=== PATIENT | male | born 1945 | race Caucasian/White ===

== ENCOUNTER 2017-05-26 05:40 | Inpatient (IN) | payer OTHER, MEDICARE ==
[2017-05-26] VITALS (13 sets, daily range): BP systolic 115–138; BP diastolic 58–73; PULSE 62–90; RESP 16–18; TEMP 97.8–99.1; O2SAT 93–95
[~2017-05-26] VITALS: Ht 180.3 cm; Wt 92.0 kg
[~2017-05-26 05:40] MED LIST: AZIT250T3 PO; CARV3.12 PO; ECASA81 PO; FURO1TAB62 PO; GUAISYP4 PO; LOSA50TA PO; SPIR25 PO
[2017-05-26] MEDS ORDERED: POVIDONE IODINE 5% (ANTISEPSIS KIT) 4 APPLICATIONS EACH NARE PRN (06:15)
[2017-05-26] MEDS ORDERED: CHLORHEXIDINE GLUCONATE 2 % 1 PACK (2 CLOTHS) TOPICAL PRN (06:15)
[2017-05-26] MEDS ORDERED: METOPROLOL TARTRATE 25 MG TAB PO PRN (06:15)
[2017-05-26] MEDS ORDERED: LACTATED RINGER'S 1000 ML IV PRN (06:15)
[2017-05-26] MEDS ORDERED: SODIUM CHLORID 0.9% 500 ML IV PRN (06:15)
[2017-05-26] MEDS ORDERED: HEPARIN SODIUM - IV 10,000 UNITS/10 ML VIAL ONE (06:26)
[2017-05-26] MEDS ORDERED: PROTAMINE SULFATE 50 MG/5 ML VIAL ONE ×2 (06:26→08:13)
[2017-05-26] MEDS ORDERED: VANCOMYCIN HCL 1000 MG VIAL ONE (06:27)
[2017-05-26] MEDS ORDERED: BUPIVACAINE HCL PF 0.5% 30 ML VIAL ONE (06:27)
[2017-05-26] MEDS ORDERED: HEPARIN-NS/PF INJ 500 ML ONE ×2 (06:27→09:27)
--- NOTE | 2017-05-26 06:52 | PD.VS.PN ---
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 No F/C. Nonproductive cough. Labs: Hct 41 plt 178 INR 0.9 cr 1.4 Blood: T&S EKG: no ST changes Imaging: CT reviewed; likely type 2 endoleak but poor overall fixation of distal limbs Orders: NPO VANC 1g IV OCTOR Post-operative destination: PACU Operative site marked: No (bilateral (aortic) surgery) Consent: Informed consent has been obtained from Nevaeh Hubbard. I have explained the procedure in detail and discussed the risks, benefits, and potential complications. All questions have been answered. Patient contact information: [phone] Howard Verma MD May 26, 2017 06:52
[2017-05-26] MEDS ORDERED: FAMOTIDINE 20 MG/2 ML VIAL ONE (07:40)
[2017-05-26] MEDS ORDERED: ACETAMINOPHEN 1000 MG/100 ML 100 ML IV ONE (07:40)
[2017-05-26] MEDS ORDERED: MIDAZOLAM HCL 2 MG/2 ML VIAL ONE (07:40)
[2017-05-26] MEDS ORDERED: SODIUM CHLOR 0.9% 250 ML INJ 250 ML ONE (08:13)
[2017-05-26] MEDS ORDERED: IOHEXOL IV ONE (08:34)
--- NOTE | 2017-05-26 10:03 | HHI.PR ---
Immediate Post Op Note Procedure Date: May 26, 2017 Pre Op Diagnosis: endoleak after EVAR, failing endograft Post Op Diagnosis: endoleak after EVAR, failing endograft Surgeon: Howard Verma Disk Sander(s): none Procedure: 1. EVAR revision (B iliac limb extensions) 2. IVUS of aorta, R JORGE LUIS, L JORGE LUIS 3. IVCavagram 4. Transcaval embolization of AAA sac 5. 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 Type II endoleak 2. Successful extension of B iliac limbs with preservation of hypogastric perfusion 3. successful access to AAA sac and coil embolization 4. + Doppler signals B LE Complications: none Specimen(s) removed: none Estimated blood loss: 50mL Anesthesia: General Drains: None Fluids: 1400mL IVF Urinary Output (mLs): 800 Patient to: PACU Patient Condition: Good Implant/Devices: SEE IMPLANT LOG (if applicable) Date/Time of Procedure: SEE SURGICAL CARE RECORD Howard Vemra MD May 26, 2017 10:03
[2017-05-26] MEDS ORDERED: DO NOT ADM ANY ANTICOAGULANT DRUGS PRN (10:12)
[2017-05-26] MEDS ORDERED: HYDROmorphone HCL 2 MG TAB PO PRN (10:15)
[2017-05-26] MEDS ORDERED: BISACODYL 10 MG SUPP RECTAL PRN (10:15)
[2017-05-26] MEDS ORDERED: MAGNESIUM HYDROXIDE SUSP 30 ML CUP PO PRN (10:15)
[2017-05-26] MEDS ORDERED: SENNOSIDES 8.6 MG TAB PO PRN (10:15)
[2017-05-26] MEDS ORDERED: LACTULOSE SYRUP 20 GM/30 ML CUP PO PRN (10:15)
[2017-05-26] MEDS ORDERED: *morphine SULFATE 8 MG/ML PERIprocedure ONLY ONE (10:29)
--- NOTE | 2017-05-26 13:21 | MP ---
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 PROCEDURE 1. Bilateral iliac limb extensions with 14 x 90 EVAR limbs. 2. Intravascular ultrasound of the aorta, right common iliac artery, left common iliac artery. 3. Inferior vena cava gram. 4. Transcaval embolization of aortic sac. 5. Bilateral common femoral artery Perclose. ATTENDING SURGEON Giovanni Verma MD ANESTHESIA General. INDICATIONS Mr. Hubbard is a 71-year-old gentleman who has a history of aneurysm repaired elsewhere. He has an enlarging aneurysm sac and suggestion of a type 2 endoleak and certainly very poor fixation and seal of his distal limbs. He is taken to the operating room for angiographic interrogation, endovascular remediation and transcaval embolization. DESCRIPTION OF PROCEDURE Informed consent was obtained from the patient. He was taken to the operating room and placed supine on the operating table. An appropriate time-out was taken to ensure the patient's identity, operative site and planned procedure. The administration of a gram of vancomycin was initiated prior to skin incision and will be discontinued after single preoperative dose. Vancomycin was chosen because of the patient's PENICILLIN ALLERGY. Everyone in the room agreed with time-out and we proceeded. He was prepped from his nipples to his knees. A 21 gauge micropuncture needle was used to access both common femoral arteries, this was exchanged using Seldinger technique through micropuncture sheath through which a 0.035 Storq wire was introduced. The micropuncture sheaths were changed for a 5-Gabonese sheath. This was used to dilate the skin, subcutaneous tract and arteriotomy. Two Perclose ProGlide sutures were inserted into both groins and tagged. These were not tied down but will be used later. The 8-Gabonese sheath were introduced into both groins. A 21 gauge micropuncture sheath was used to access the right common femoral vein and this was exchanged using Seldinger technique through micropuncture sheath through which a 0.035 Storq wire was introduced. Micropuncture sheath was exchanged for a 5-Gabonese sheath. The wire was removed and the sheath was flushed. The patient was then systemically heparinized and throughout the remainder of the case ACT was kept greater than 250. Over the right-hand common femoral artery access a Storq wire was placed and the marker flush straight catheter was then introduced and over the left-hand side a Storq wire was advanced to the proximal descending aorta and exchanged using catheter for a Lunderquist wire. The IVUS catheter was then introduced. Images of the proximal aorta showed reasonable apposition of the graft to the aortic wall below the renal arteries and images of the left common iliac artery showed the diameter to be approximately 14 mm immediately proximal to the hypogastric artery takeoff. The IVUS catheter was removed and aortogram was obtained. This confirmed that there was poor apposition distally with good apposition proximally. Additionally, it confirmed there was a type 2 endoleak. The 8-Gabonese sheath on the left was removed over the Lunderquist wire and Rodri dilators were used to dilate the skin, subcutaneous tract and arteriotomy and a 14-mm Medtronic limb was then introduced and deployed with sufficient overlap to the distal aspect of fabric was immediately proximal to the hypogastric artery takeoff. The delivery system was removed and a 12-Gabonese sheath was introduced and the junctions in the entire stent were ballooned with a Reliant balloon. The Reliant balloon was removed and a vertebral catheter was placed over the Lunderquist wire and the Lunderquist wire was removed. A Storq wire was advanced up the right-hand side and the marker catheter was removed and using a vertebral catheter the Storq was exchanged for a Lunderquist wire. The vertebral catheter was removed and the IVUS catheter was placed up the right-hand side and images of the right common iliac artery were obtained. This showed the diameter was 14 mm and based on this a 16 mm limb was chosen. The IVUS catheter was removed. The 8-Gabonese sheath was removed. Rodri dilators were used to dilate the skin, subcutaneous tracts and arteriotomy and the 16 mm limb was introduced and deployed without difficulty so the distal aspect of the limb was immediately proximal to the hypogastric takeoff. The delivery system was removed and a 12-Gabonese sheath was introduced and the limb was balloon dilated with a Reliant balloon. The completion angiogram showed excellent result on both sides without any endoleak and preservation of both hypogastric arteries. On the right-hand side the wire, catheter and sheath were removed and Perclose were tied down. Hemostasis was achieved in the groin and there were Doppler signals in the foot. We then advanced the Storq wire through the 5-Gabonese venous sheath and the venous sheath was exchanged for a 8 and then 10 Gabonese sheath. A TIPS access set was then brought up onto the field, prepped and passed through the 10-Gabonese sheath, angulated so that it penetrated the aortic sac through the caval wall and a Glidewire was advanced through this. The Glidewire appeared to coil in the aneurysm sac and this was confirmed on multiple obliquities of fluoroscopy. Several coils were then placed, both framing and non-framing within the aneurysm sac and completion angiogram showed no misplacement of the coils. The catheter delivery system was removed and the venogram was obtained through the 10-Gabonese inferior vena cava sheath and this revealed there was no caval injury. The 10-Gabonese caval system was removed and pressure was held for hemostasis. The left-hand catheter was removed. The Storq wire was introduced through the 12-Gabonese sheath and the 12-Gabonese sheath was removed and the Perclose were tied down and hemostasis was achieved in the groin. There were Doppler signals in the foot. The heparin was reversed with protamine and the wounds were sealed with Dermabond. The patient was then awoken from anesthesia and transported to the recovery room in stable condition. I was present and scrubbed and performed the entire procedure. INTERPRETATION OF IMAGES The patient has a patent endograft with no type 1 but has very poor apposition distally, although there is no type 1B endoleak. There is a clear type 2 endoleak. After placement of both iliac limb extensions, there is improved geometry of the stent graft. After transcaval embolization there is no misplaced coil. MD BRIGIDO Strong/NEEMA /11:09 AM /12:14 PM BRIDGER
--- NOTE | 2017-05-26 15:00 | EKG ---
Date Performed: 05/26/2017 Time Performed: 07:24:54 PTAGE: 71 years EKG: Sinus rhythm MARKED LEFT AXIS DEVIATION NONSPECIFIC ST & T-WAVE ABNORMALITY ABNORMAL ECG INTERPRETATION BASED ON A DEFAULT AGE OF 40 YEARS PREVIOUS TRACING : 05/31/2014 05.06 DOCTOR: Néstor Briones Interpretating Date/Time 05/26/2017 14:58:45
[2017-05-26] MEDS ORDERED: LOSARTAN 50 MG TAB PO SCH (21:00)
[2017-05-26] MEDS: CARVEDILOL 3.125 MG TAB PO SCH (21:00)
[2017-05-26] MEDS ORDERED: ATORVASTATIN 40 MG TAB PO SCH (21:00)
[2017-05-26] MEDS: FAMOTIDINE 20 MG TAB PO SCH (21:19)
[2017-05-26] MEDS: DOCUSATE SODIUM 50 MG/SENNA 8.6 MG TAB PO SCH (21:19)
[2017-05-27] VITALS (12 sets, daily range): BP systolic 120–136; BP diastolic 64–65; PULSE 87–114; RESP 19–22; TEMP 98.5–99.4; O2SAT 94–95
--- NOTE | 2017-05-27 00:31 | MB ---
cc: OTIS MCCARTY DO DATE OF CONSULTATION: 05/26/2017 REASON FOR CONSULTATION: Atrial fibrillation. HISTORY OF PRESENT ILLNESS Nevaeh Hubbard is a pleasant 71-year-old male who presented to [facility] on May 26, 2017, for elective trans-cable embolization of aortic sac and bilateral iliac limb extension of previous aneurysm repair. Post procedure he was found to be in atrial fibrillation for which the patient states that he is unsure if he has a previous history. In reviewing records from both the hospital as well as our office where he previously saw Dr. Shoemaker until 2016, it does not appear that he had atrial fibrillation before this. In seeing him he is post EVAR repair with no complaints. On telemetry his rhythm appears to be atrial fibrillation with controlled ventricular response. PAST MEDICAL HISTORY: 1. History of abdominal aortic aneurysm. 2. Cardiomyopathy. 3. Chronic systolic congestive heart failure. 4. Coronary artery disease. 5. Hyperlipidemia 6. Hypertension 7. Osteoarthritis 8. Peripheral vascular disease. PAST SURGICAL HISTORY 1. Previous abdominal aortic aneurysm repair 2. Trans-cable embolization of aortic sac, bilateral iliac limb extension (May 26, 2017) 3. Placement of a Biotronik ICD (May 29, 2014). 4. Previous cardiac catheterization (November 20, 2013) left main normal. LAD proximal 30% stenosis. Left circumflex, diffuse 20 25% disease. RCA, small nondominant vessel. ALLERGIES LISINOPRIL. PENICILLIN. MEDICATIONS 1. Azithromycin 250 mg as directed. 2. Coreg 3.125 mg b.i.d. 3. Losartan 50 mg every night 4. Spironolactone 25 mg daily 5. Aspirin 81 mg daily 6. Lasix 20 mg daily. SOCIAL HISTORY The patient drinks two to three times per week. He smokes daily. Denies drug abuse. FAMILY HISTORY Denies sudden cardiac within the family. REVIEW OF SYSTEMS 14-systems were reviewed including osteopathic, pertinent positives and negatives above otherwise negative. PHYSICAL EXAMINATION Vital signs: Temperature 98.1, heart rate 78, blood pressure 121/58, respirations 18, pulse ox 94% on 2 liters. In general the patient appears well in no acute distress, alert awake and oriented x3. Extraocular muscles intact. Mucous membranes moist. Neck: Supple. No JVD at 45 degrees. No carotid bruits heard bilaterally. Carotid upstroke is brisk in nature. Heart is irregularly irregular. Positive first and second heart sounds with a 1/6 crescendo-decrescendo murmur to the right sternal border. Lungs have decreased breath sounds bilaterally but no overt wheezes, rales or rhonchi. Abdomen: Soft, nontender, nondistended. No organomegaly noted. Extremities: Show no clubbing, cyanosis or edema. The groins bilaterally with no hematoma or ecchymosis. Distal pulses intact. Neurologically: No focal deficits. Skin: Warm, dry and intact. Osteopathic: No kyphoscoliosis, lordosis or paraspinal tender points. Electrocardiogram (May 26, 2017 at 12:49) atrial fibrillation with controlled ventricular response, nonspecific ST-T wave changes. IMPRESSION 1. Previous endovascular aneurysm repair with endoleak, status post trans-cable embolization of aortic sac as well as bilateral iliac limb extension (May 26, 2017). 2. New onset atrial fibrillation with controlled ventricular response, CHADS vas score 4. 3. Compensated chronic systolic heart failure with ICD in place. 4. Mild coronary artery disease as above. 5. Tobacco abuse. RECOMMENDATIONS 1. Mr. Hubbard underwent endovascular repair of endo leak by Dr. Verma and appears to be doing well postoperatively. 2. EKG in telemetry looked to be atrial fibrillation for which the patient does not believe he had a previous history but is unsure. 3. He states that the [place] had monitored his ICD and he states that he got a call earlier this week stating that there was nothing wrong with his monitoring recently. 4. His heart rates are currently controlled and would continue him on his current medications for his congestive heart failure. As heart rates are mostly in the 60s probably would not place him on any AV jem blocking agents at this time. 5. I did speak to him about anticoagulation as he does have an elevated CHADS vas score of 4. Overall he is very hesitant to be placed on a blood thinner, as he does not like to take medications at all. I spoke to him extensively and he will think about it, but if he decides against it, this can be reevaluated in the outpatient setting at the [place]. 6. He will think about it overnight about anticoagulation and I will see him tomorrow to further discuss this. 7. I spoke to him for greater than 3 minutes about tobacco cessation. Thank you for allowing me to see Nevaeh Willson. If there are any questions, please do not hesitate to call. Otis Mccarty DO ALEKSANDER/ARIANNE /11:04 PM /12:06 AM
[2017-05-27 04:13] LABS: HEMATOCRIT 35.7 % (39.0-51.0); MEAN CELL VOLUME 92.9 FL (80.0-100.0); MEAN CORPUSCULAR HEMOGLOBIN 32.4 PG (27.0-34.0); MEAN CORPUSCULAR HGB CONC 34.8 % (32.0-36.0); PLATELET COUNT 128 TH/MM3 (150-450); RED BLOOD COUNT 3.84 MIL/MM3 (4.50-5.90); RED CELL DISTRIBUTION WIDTH 14.1 % (11.6-17.2); REVIEW FLAG FINAL; WHITE BLOOD COUNT 11.8 TH/MM3 (4.0-11.0)
[2017-05-27 04:44] LABS: POTASSIUM 3.9 MEQ/L (3.5-5.1)
[2017-05-27] MEDS: CARVEDILOL 3.125 MG TAB PO SCH (08:37)
[2017-05-27] MEDS: DOCUSATE SODIUM 50 MG/SENNA 8.6 MG TAB PO SCH (08:38)
[2017-05-27] MEDS: FAMOTIDINE 20 MG TAB PO SCH (08:38)
[2017-05-27] MEDS ORDERED: ENOXAPARIN SODIUM 40 MG/0.4 ML SYRINGE SQ SCH (09:00)
[2017-05-27] MEDS ORDERED: SPIRONOLACTONE 25 MG TAB PO SCH (09:00)
[2017-05-27] MEDS ORDERED: AZITHROMYCIN 250 MG TAB PO SCH (09:00)
[2017-05-27] MEDS ORDERED: ASPIRIN EC 81 MG TABEC PO SCH (09:00)
[2017-05-27] MEDS ORDERED: FUROSEMIDE 20 MG TAB PO SCH (09:00)
--- NOTE | 2017-05-27 09:17 | PD.VS.PN ---
Subjective POD #: 1 Procedure(s): EVAR revision (B iliac limb extensions) IVUS of aorta, R JORGE LUIS, L JORGE LUIS IVCavagram Transcaval embolization of AAA sac B MARINA MANAGER Perclose Subjective/Hospital Course Pt S/P EVAR revision Doing well SR on CM Pt denied CP/SOB/Abdominal/Back pain Objective Vitals/I&O Date Time Temp Pulse Resp B/P (MAP) Pulse Ox O2 Delivery O2 Flow Rate FiO2 05/27/17 08:00 96 05/27/17 07:15 90 05/27/17 07:00 99.4 89 19 136/65 (88) 95 05/27/17 06:02 94 05/27/17 05:00 95 05/27/17 04:00 114 05/27/17 03:00 87 05/27/17 03:00 98.5 93 22 120/64 (82) 94 05/27/17 02:00 89 05/27/17 01:00 92 05/27/17 00:00 110 05/26/17 23:00 99.1 89 16 131/63 (85) 95 05/26/17 23:00 90 05/26/17 22:00 86 05/26/17 21:00 82 05/26/17 20:00 86 05/26/17 19:00 97.8 85 18 138/73 (94) 95 05/26/17 19:00 74 05/26/17 18:00 76 05/26/17 17:00 69 05/26/17 16:00 63 05/26/17 15:00 78 05/26/17 15:00 98.1 70 18 121/58 (79) 94 05/26/17 14:00 62 05/26/17 13:00 67 05/26/17 12:00 89 05/26/17 11:05 74 18 105/61 (76) 96 Nasal Cannula 2 05/26/17 11:00 98.1 69 16 115/67 (83) 93 05/26/17 10:45 69 18 108/63 (78) 97 Nasal Cannula 2 05/26/17 10:30 68 18 121/68 (85) 97 Nasal Cannula 2 05/26/17 10:11 97.7 72 18 120/78 (92) 95 Nasal Cannula 2 05/27/17 05/27/17 05/27/17 07:00 15:00 23:00 Intake Total 720 ml Output Total 150 ml Balance 570 ml Exam: GENERAL: A&OX3,NAD,GCS15 SKIN: Warm and dry. CARDIOVASCULAR: Regular rate and rhythm without murmurs, gallops, or rubs. RESPIRATORY: Breath sounds equal bilaterally. No accessory muscle use. GASTROINTESTINAL: Abdomen soft, non-tender, nondistended. Bilat groins w/o swelling, discomfort or hematoma MUSCULOSKELETAL: No cyanosis, or edema. Palpable R/L DP R>L Laboratory Laboratory Tests Test 05/27/17 03:30 05/27/17 03:32 White Blood Count 11.8 Red Blood Count 3.84 Hemoglobin 12.4 Hematocrit 35.7 Mean Corpuscular Volume 92.9 Mean Corpuscular Hemoglobin 32.4 Mean Corpuscular Hemoglobin Concent 34.8 Red Cell Distribution Width 14.1 Platelet Count 128 Mean Platelet Volume 8.0 Blood Urea Nitrogen 18 Creatinine 1.50 Random Glucose 110 Calcium Level 8.5 Sodium Level 135 Potassium Level 3.9 Chloride Level 101 Carbon Dioxide Level 25.0 Anion Gap 9 Estimat Glomerular Filtration Rate 46 Assessment and Plan Assessment: (1) H/O endovascular stent graft for abdominal aortic aneurysm Plan 71/M S/P EVAR revision POD 1 (Currently NSR) Pt with episodes of A FIB yesterday with no prior hx of Cardiology following, discussed anticoagulation therapy pt hesitant and refusing at this time Discussed new onset A FIB and anticoagulation therapy benefits, treatment and management Discussed RF (such as could occur) of New Onset A FIb, pt verbalized understanding Pt refusing anticoagulation therapy at this time but agrees to f/u with his Intermediate Project Manager at the [place] in a few weeks Plan Pt to be D/C today with PO F/U Arranged Post Op follow up in 4W with a surveillance CTA post EVAR Pt to F/U with his Intermediate Project Manager in 2W Tosha CAMEJO [employer] [phone] Discharge Planning This AM Tosha Isaacs May 27, 2017 09:17
[2017-05-27] MEDS ORDERED: PERC5TAB12 PO (09:21)
--- NOTE | 2017-05-27 09:44 | PD.VS.DC ---
Discharge Summary Admission Date: May 26, 2017 at 05:40 Discharge Date: May 27, 2017 Admission Diagnosis: (1) H/O endovascular stent graft for abdominal aortic aneurysm (2) Atrial fibrillation Discharge Diagnosis: (1) H/O endovascular stent graft for abdominal aortic aneurysm ICD Codes: Z95.828 - Presence of other vascular implants and grafts Brief History from admission 71/M with a Hx of an Endoleak after EVAR Procedure(s): EVAR revision (B iliac limb extensions) IVUS of aorta, R JORGE LUIS, L JORGE LUIS IVCavagram Transcaval embolization of AAA sac B [employer] Perclose Significant Findings GENERAL: A&OX3,NAD,GCS15 SKIN: Warm and dry. CARDIOVASCULAR: Regular rate and rhythm without murmurs, gallops, or rubs. RESPIRATORY: Breath sounds equal bilaterally. No accessory muscle use. GASTROINTESTINAL: Abdomen soft, non-tender, nondistended. Bilat groins w/o swelling, discomfort or hematoma MUSCULOSKELETAL: No cyanosis, or edema. Palpable R/L DP R>L Laboratory Tests Test 05/27/17 03:30 05/27/17 03:32 White Blood Count 11.8 TH/MM3 (4.0-11.0) Red Blood Count 3.84 MIL/MM3 (4.50-5.90) Hemoglobin 12.4 GM/DL (13.0-17.0) Hematocrit 35.7 % (39.0-51.0) Platelet Count 128 TH/MM3 (150-450) Creatinine 1.50 MG/DL (0.60-1.30) Random Glucose 110 MG/DL (74-106) Sodium Level 135 MEQ/L (136-145) Estimat Glomerular Filtration Rate 46 ML/MIN (>89) Hospital Course: Pt with a hx of Endoleak after EVAR Pt s/p POD1- EVAR revision, embolization POD 0 Pt has been feeling well except for a cough. No F/C. Nonproductive cough. 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 [facility] Pt D/C with Post operative F/U Allergies Coded Allergies Type Severity Reaction Last Updated Verified penicillin G Allergy Severe PASS OUT 05/26/17 No lisinopril Allergy Intermediate Cough 05/26/17 No 05/25/17 05/25/17 05/26/17 05/26/17 05/27/17 05/27/17 06:00 18:00 06:00 18:00 06:00 18:00 Intake Total 2230 ml 720 ml Output Total 1950 ml 150 ml Balance 280 ml 570 ml Intake Oral 480 ml 720 ml Other 1750 ml Output Urine Total 1900 ml 150 ml Estimated Blood Loss 50 ml # Voids 2 # Bowel Movements 0 Laboratory Tests Test 05/27/17 03:30 05/27/17 03:32 White Blood Count 11.8 TH/MM3 Red Blood Count 3.84 MIL/MM3 Hemoglobin 12.4 GM/DL Hematocrit 35.7 % Mean Corpuscular Volume 92.9 FL Mean Corpuscular Hemoglobin 32.4 PG Mean Corpuscular Hemoglobin Concent 34.8 % Red Cell Distribution Width 14.1 % Platelet Count 128 TH/MM3 Mean Platelet Volume 8.0 FL Blood Urea Nitrogen 18 MG/DL Creatinine 1.50 MG/DL Random Glucose 110 MG/DL Calcium Level 8.5 MG/DL Sodium Level 135 MEQ/L Potassium Level 3.9 MEQ/L Chloride Level 101 MEQ/L Carbon Dioxide Level 25.0 MEQ/L Anion Gap 9 MEQ/L Estimat Glomerular Filtration Rate 46 ML/MIN Orders Procedure Category Date Status Time Lactated Ringer's MED 05/26/17 In Process 1000 Ml Inj (Lr 1000 M 06:15 Sodium Chlorid 0.9% MED 05/26/17 In Process 500 Ml Inj (Ns 500 M 06:15 Metoprolol Tartrate MED 05/26/17 In Process (Lopressor) 06:15 Povidone Iod 5% MED 05/26/17 In Process Antisepsis Kit 06:15 Chlorhexidine 2% MED 05/26/17 In Process Cloth (Chlorhexidine 06:15 Protamine Sulfate Inj MED 05/26/17 Complete (Protamine Sulfate 06:26 Heparin Inj (Heparin MED 05/26/17 Complete Inj) 06:26 Vancomycin Inj MED 05/26/17 Complete (Vancomycin Inj) 06:27 Bupivacaine Pf 0.5% MED 05/26/17 Complete Inj (Marcaine Pf 0.5 06:27 Heparin-Ns/Pf Inj MED 05/26/17 Complete (Heparin-Ns/Pf Inj) 06:27 Type And Screen BBK 05/26/17 Complete 06:30 Electrocardiogram CAV 05/26/17 Resulted 06:30 Midazolam Inj (Versed MED 05/26/17 Complete Inj) 07:40 Famotidine Inj MED 05/26/17 Complete (Pepcid Inj) 07:40 Acetaminophen 1000 MED 05/26/17 Complete Mg/100 Ml (Ofirmev 10 07:40 Endovascular Cath CATH 05/26/17 Complete Protamine Sulfate Inj MED 05/26/17 Complete (Protamine Sulfate 08:13 Sodium Chlor 0.9% 250 MED 05/26/17 Complete Ml Inj (Ns 250 Ml 08:13 Heparin-Ns/Pf Inj MED 05/26/17 Complete (Heparin-Ns/Pf Inj) 09:27 Iohexol 300 Inj MED 05/26/17 Complete (Omnipaque 300 Inj) 08:34 Code Status CODE 05/26/17 Transmitted 10:03 Vital Signs (Adult) HEIDY 05/26/17 In Process 10:03 Drying Frame Operator / HEIDY 05/26/17 Complete Telemetry 10:03 Activity Oob Ad Radha HEIDY 05/26/17 In Process 18:00 Activity Bed Rest HEIDY 05/26/17 In Process 10:[address] Mccullough HEIDY 05/26/17 In Process 10:03 Precautions HEIDY 05/26/17 In Process 10:03 Diet Heart Healthy DIET 05/26/17 Transmitted Lunch Basic Metabolic Panel LAB 05/27/17 Complete (Bmp) 04:00 Cbc No Diff, Includes LAB 05/27/17 Complete Plts 04:00 Famotidine (Pepcid) MED 05/26/17 In Process 21:00 Atorvastatin (Lipitor) MED 05/26/17 In Process 21:00 Oxycodone (Roxicodone) MED 05/26/17 In Process 10:15 Hydromorphone MED 05/26/17 In Process (Dilaudid) 10:15 Scd Bilateral/Knee HEIDY 05/26/17 In Process High 10:03 Docusate Sodium-Senna MED 05/26/17 In Process (Catie-Colace) 21:00 Magnesium Hydroxide MED 05/26/17 In Process Liq (Milk Of Magnesi 10:15 Sennosides (Senokot) MED 05/26/17 In Process 10:15 Bisacodyl Supp MED 05/26/17 In Process (Dulcolax Supp) 10:15 Lactulose Liq MED 05/26/17 In Process (Lactulose Liq) 10:15 Remove Urinary HEIDY 05/26/17 In Process Catheter 18:00 Aspirin Ec (Ecotrin MED 05/27/17 In Process Ec) 09:00 Azithromycin MED 05/27/17 In Process (Zithromax) 09:00 Carvedilol (Coreg) MED 05/26/17 In Process 21:00 Furosemide (Lasix) MED 05/27/17 In Process 09:00 Losartan (Cozaar) MED 05/26/17 In Process 21:00 Spironolactone MED 05/27/17 In Process (Aldactone) 09:00 *Morphine Inj MED 05/26/17 Complete (*Morphine Inj 10:29 Class Iv [facility] 30 [facility] 05/26/17 Complete MIN General/Pacu [facility] 05/26/17 Complete Post Anesthesia Oxygen [facility] 05/26/17 Complete Misc Nursing MED 05/26/17 In Process Information 10:12 Enoxaparin Inj MED 05/27/17 In Process (Lovenox Inj) 09:00 Consult Cardiology CONS 05/26/17 Transmitted Am Admit Pre Op Care [facility] 05/26/17 Complete Electrocardiogram CAV 05/26/17 Complete 12:49 (Hub Use Only)Inp Phy CONS 05/26/17 Transmitted Cons/Ref Admit To Inpatient ADMITTING 05/26/17 Transmitted Inpatient ADMITTING 05/26/17 Transmitted Certification Attending Discharge DISCHARGE 05/27/17 Transmitted Order Vital Signs Date Time Temp Pulse Resp B/P (MAP) Pulse Ox O2 Delivery O2 Flow Rate FiO2 05/27/17 09:00 92 05/27/17 08:00 96 05/27/17 07:15 90 05/27/17 07:00 99.4 89 19 136/65 (88) 95 05/27/17 06:02 94 05/27/17 05:00 95 05/27/17 04:00 114 05/27/17 03:00 87 05/27/17 03:00 98.5 93 22 120/64 (82) 94 05/27/17 02:00 89 05/27/17 01:00 92 05/27/17 00:00 110 05/26/17 23:00 99.1 89 16 131/63 (85) 95 05/26/17 23:00 90 05/26/17 22:00 86 05/26/17 21:00 82 05/26/17 20:00 86 05/26/17 19:00 97.8 85 18 138/73 (94) 95 05/26/17 19:00 74 05/26/17 18:00 76 05/26/17 17:00 69 05/26/17 16:00 63 05/26/17 15:00 78 05/26/17 15:00 98.1 70 18 121/58 (79) 94 05/26/17 14:00 62 05/26/17 13:00 67 05/26/17 12:00 89 05/26/17 11:05 74 18 105/61 (76) 96 Nasal Cannula 2 05/26/17 11:00 98.1 69 16 115/67 (83) 93 05/26/17 10:45 69 18 108/63 (78) 97 Nasal Cannula 2 05/26/17 10:30 68 18 121/68 (85) 97 Nasal Cannula 2 05/26/17 10:11 97.7 72 18 120/78 (92) 95 Nasal Cannula 2 05/26/17 06:35 97.9 76 20 108/72 (84) 99 Discharge Condition: Good Discharge Disposition: Discharge Home Discharge Instructions: Follow up in our out patient clinic in 4W with a surveillance CTA post EVAR Follow up with your partner cco in 2W (A FIB) Continue w/ a daily ASA regimen (take 325mg daily) You were prescribed a narcotic pain medication- No driving while taking this medication as it may cause drowsiness Take an over the counter stool softener while taking your prescribed pain medication as it may cause constipation Activities as tolerated Recommend a daily walking regimen Continue a heart healthy diet May Shower No tub baths or swimming for 2W Seek medical attention if you develop CP/SOB/Weakness Call the office with any questions or concerns [phone] Any questions or concerns: Call [facility] [phone] Tosha Isaacs May 27, 2017 09:44
--- NOTE | 2017-05-27 10:16 | PD.CARD.PN ---
Subjective Subjective Remarks No events overnight No chest pain, SOB Objective Medications Current Medications Medications (Trade) Dose Ordered Sig/Mirela Route Start Time Stop Time Status Last Admin Lactated Ringer's 1,000 ml @ 30 mls/hr Q24H PRN IV 05/26/17 06:15 05/29/17 06:14 05/26/17 06:35 Sodium Chloride 500 ml @ 30 mls/hr [id number] PRN IV 05/26/17 06:15 05/29/17 06:14 (Lopressor) 25 mg CONTROL ANALYST PRN PO 05/26/17 06:15 05/29/17 06:14 (Betadine 5% Antisepsis Kit) 1 applic CONTROL ANALYST PRN EACH NARE 05/26/17 06:15 05/29/17 06:14 05/26/17 06:50 (Chlorhexidine 2% Cloth) 3 pack CONTROL ANALYST PRN TOPICAL 05/26/17 06:15 05/29/17 06:14 05/26/17 06:19 (Pepcid) 20 mg BID PO 05/26/17 21:00 05/26/17 21:19 (Lipitor) 40 mg HS PO 05/26/17 21:00 05/26/17 21:19 (Roxicodone) 5 mg Q4H PRN PO 05/26/17 10:15 05/26/17 15:40 (Dilaudid) 2 mg Q4H PRN PO 05/26/17 10:15 (Lovenox Inj) 40 mg Q24H SQ 05/27/17 09:00 05/27/17 08:38 (Catie-Colace) 1 tab BID PO 05/26/17 21:00 05/26/17 21:19 (Milk Of Magnesia Liq) 30 ml Q12H PRN PO 05/26/17 10:15 (Senokot) 17.2 mg Q12H PRN PO 05/26/17 10:15 (Dulcolax Supp) 10 mg DAILY PRN RECTAL 05/26/17 10:15 (Lactulose Liq) 30 ml DAILY PRN PO 05/26/17 10:15 (Ecotrin Ec) 81 mg DAILY PO 05/27/17 09:00 05/27/17 08:37 (Zithromax) 250 mg DAILY PO 05/27/17 09:00 05/27/17 09:35 (Coreg) 3.125 mg BID PO 05/26/17 21:00 05/27/17 08:37 (Lasix) 20 mg DAILY PO 05/27/17 09:00 05/27/17 08:37 (Cozaar) 50 mg HS PO 05/26/17 21:00 Future hold (Aldactone) 25 mg DAILY PO 05/27/17 09:00 05/27/17 08:37 Miscellaneous Information ALL NURSING DEPARTME... UNSCH PRN .XX 05/26/17 10:12 05/27/17 10:11 Vital Signs / I&O Vital Signs Date Time Temp Pulse Resp B/P (MAP) Pulse Ox O2 Delivery O2 Flow Rate FiO2 05/27/17 09:00 92 05/27/17 08:00 96 05/27/17 07:15 90 05/27/17 07:00 99.4 89 19 136/65 (88) 95 05/27/17 06:02 94 05/27/17 05:00 95 05/27/17 04:00 114 05/27/17 03:00 87 05/27/17 03:00 98.5 93 22 120/64 (82) 94 05/27/17 02:00 89 05/27/17 01:00 92 05/27/17 00:00 110 05/26/17 23:00 99.1 89 16 131/63 (85) 95 05/26/17 23:00 90 05/26/17 22:00 86 05/26/17 21:00 82 05/26/17 20:00 86 05/26/17 19:00 97.8 85 18 138/73 (94) 95 05/26/17 19:00 74 05/26/17 18:00 76 05/26/17 17:00 69 05/26/17 16:00 63 05/26/17 15:00 78 05/26/17 15:00 98.1 70 18 121/58 (79) 94 05/26/17 14:00 62 05/26/17 13:00 67 05/26/17 12:00 89 05/26/17 11:05 74 18 105/61 (76) 96 Nasal Cannula 2 05/26/17 11:00 98.1 69 16 115/67 (83) 93 05/26/17 10:45 69 18 108/63 (78) 97 Nasal Cannula 2 05/26/17 10:30 68 18 121/68 (85) 97 Nasal Cannula 2 05/26/17 10:11 97.7 72 18 120/78 (92) 95 Nasal Cannula 2 I/O 05/26/17 05/26/17 05/26/17 05/27/17 05/27/17 05/27/17 07:00 15:00 23:00 07:00 15:00 23:00 Intake Total 1750 ml 480 ml 720 ml Output Total 1050 ml 900 ml 150 ml Balance 700 ml -420 ml 570 ml Intake Oral 480 ml 720 ml Other 1750 ml Output Urine Total 1000 ml 900 ml 150 ml Estimated Blood Loss 50 ml # Voids 2 # Bowel Movements 0 Physical Exam GENERAL: NAD, AAOx3 SKIN: Warm and dry. HEAD: Atraumatic. Normocephalic. EYES: Pupils equal and round. No scleral icterus. No injection or drainage. ENT: No nasal bleeding or discharge. Mucous membranes pink and moist. NECK: Trachea midline. No JVD. CARDIOVASCULAR: Irregularly irregular RESPIRATORY: No accessory muscle use. Clear to auscultation. Breath sounds equal bilaterally. GASTROINTESTINAL: Abdomen soft, non-tender, nondistended. Hepatic and splenic margins not palpable. MUSCULOSKELETAL: Extremities without clubbing, cyanosis, or edema. No obvious deformities. Bilateral groins no ecchymosis. NEUROLOGICAL: Awake and alert. No obvious cranial nerve deficits. Motor grossly within normal limits. Five out of 5 muscle strength in the arms and legs. Normal speech. PSYCHIATRIC: Appropriate mood and affect; insight and judgment normal. Laboratory Laboratory Tests Test 05/27/17 03:30 05/27/17 03:32 White Blood Count 11.8 TH/MM3 Red Blood Count 3.84 MIL/MM3 Hemoglobin 12.4 GM/DL Hematocrit 35.7 % Mean Corpuscular Volume 92.9 FL Mean Corpuscular Hemoglobin 32.4 PG Mean Corpuscular Hemoglobin Concent 34.8 % Red Cell Distribution Width 14.1 % Platelet Count 128 TH/MM3 Mean Platelet Volume 8.0 FL Blood Urea Nitrogen 18 MG/DL Creatinine 1.50 MG/DL Random Glucose 110 MG/DL Calcium Level 8.5 MG/DL Sodium Level 135 MEQ/L Potassium Level 3.9 MEQ/L Chloride Level 101 MEQ/L Carbon Dioxide Level 25.0 MEQ/L Anion Gap 9 MEQ/L Estimat Glomerular Filtration Rate 46 ML/MIN Assessment and Plan Problem List: (1) H/O endovascular stent graft for abdominal aortic aneurysm ICD Codes: Z95.828 - Presence of other vascular implants and grafts (2) CAD (coronary artery disease) ICD Codes: I25.10 - CAD (coronary artery disease) Status: Acute (3) Congestive heart failure (CHF) ICD Codes: I50.9 - Congestive heart failure (CHF) Status: Acute (4) Dilated cardiomyopathy ICD Codes: I42.0 - Dilated cardiomyopathy Status: Acute (5) Atrial fibrillation ICD Codes: I48.91 - Unspecified atrial fibrillation (6) Cardiac defibrillator in situ ICD Codes: Z95.810 - Cardiac defibrillator in situ Status: Acute (7) Hypertension ICD Codes: I10 - Hypertension Status: Acute Assessment and Plan 1) Presumed new onset Afib Patient does not believe he's had before CHADSVASc = 4 Heart rates controlled Discussed anticoagulation, does not want to be on medications Discussed risk of CVA specifically, patient wants to go on ASA 81mg daily and [facility] 2) Endovascular repair of AAA endoleak 3) ICD followed by his [facility] doctor 4) Con't HF meds 5) Cardiovascularly stable for discharge Problem Qualifiers (1) Atrial fibrillation: Qualified Codes: I48.91 - Unspecified atrial fibrillation Otis Joaquin DO May 27, 2017 10:16
--- NOTE | 2017-05-27 15:28 | EKG ---
Date Performed: 05/26/2017 Time Performed: 12:49:26 PTAGE: 71 years EKG: Possible faulty V2 - omitted from analysis Extensive T wave changes are nonspecific Abnorma l ECG PREVIOUS TRACING : 05/26/2017 07.24 Rhythm is probably Sinus rhythm with a low amplitude P-wave and premature atrial contractions. Rhythm strip is advised for some more specific diagnosis. Since the prior tracing, there has been no significant serial change. DOCTOR: Giselle Irwin Interpretating Date/Time 05/27/2017 15:27:08
== END 2017-05-27 11:05 | disposition home or self-care (01) | DRG 269 ==
LOC: HSDI 05:40 → HCPC 11:10
PROVIDERS: ADMIT Surgery; ATTEND Surgery
PROC: B5191ZZ Fluoroscopy of Inferior Vena Cava using Low Osmolar Contrast (ICD-10-PCS; 2017-05-26)
PROC: 04V03EZ Restriction of Abdominal Aorta with Branched or Fenestrated Intraluminal Device, One or Two Arteries, Percutaneous Approach (ICD-10-PCS; principal; 2017-05-26 07:53)
PROC: B440ZZ3 Ultrasonography of Abdominal Aorta, Intravascular (ICD-10-PCS; 2017-05-26 07:53)
DX: T82.330A Leakage of aortic (bifurcation) graft (replacement), initial encounter (principal); I50.22 Chronic systolic (congestive) heart failure; I11.0 Hypertensive heart disease with heart failure; I42.0 Dilated cardiomyopathy; I97.89 Other postprocedural complications and disorders of the circulatory system, not elsewhere classified; J44.0 Chronic obstructive pulmonary disease with (acute) lower respiratory infection; I71.4 Abdominal aortic aneurysm, without rupture; I25.10 Atherosclerotic heart disease of native coronary artery without angina pectoris; E78.5 Hyperlipidemia, unspecified; I73.9 Peripheral vascular disease, unspecified; I48.0 Paroxysmal atrial fibrillation; M19.90 Unspecified osteoarthritis, unspecified site; Y83.2 Surgical operation with anastomosis, bypass or graft as the cause of abnormal reaction of the patient, or of later complication, without mention of misadventure at the time of the procedure; F17.200 Nicotine dependence, unspecified, uncomplicated; Z88.0 Allergy status to penicillin; Z95.810 Presence of automatic (implantable) cardiac defibrillator
CPT/HCPCS: 80048; 85027; 86850; 86900; 86901; 93005; C1725; C1769; J0131; J1644; J1650; J2250; J2270; J2720; J3370; J7050; J7120

== ENCOUNTER 2017-06-26 10:23 | Emergency (ER) | payer OTHER, MEDICARE ==
[~2017-06-26] VITALS: Ht 180.3 cm; Wt 89.0 kg
[~2017-06-26 10:23] MED LIST changes: -GUAISYP4 PO; +PERC5TAB12 PO
[2017-06-26 10:25] VITALS: BP 138/89; PULSE 77; RESP 18; TEMP 98.7; O2SAT 98
[2017-06-26] MEDS ORDERED: MEDR4PAK PO (11:26)
[2017-06-26] MEDS ORDERED: ROBA500T PO (11:26)
--- NOTE | 2017-06-26 11:26 | PD ---
HPI Chief Complaint: Back/ Neck Pain or Injury Time Seen by Provider: 11:14 Travel History International Travel<30 days: No Contact w/Intl Traveler<30days: No Traveled to known affect area: No History of Present Illness HPI 71-year-old male presents to the emergency department complaining of right- sided sciatica 3 days. Has history of chronic low back pain and sciatica and his pain is consistent with past sciatica exacerbations. Pain radiates down his right leg. Denies new or recent injury. Pain onset when he was getting out of bed the other morning. Denies encopresis, incontinence, saddle anesthesias. Denies fever, vomiting, abdominal pain. Denies chest pain, shortness of breath. Denies cancer. Symptoms are mild in severity. Has taken oxycodone for his pain. Discussed pain as sharp and shooting. Worse with standing up straight, with ambulation, sitting, movement. Better at rest and sometimes in the sitting position. History of AAA repair with stent, shortness of breath, CHF, Degenerative disk disease, arthritis, osteoporosis. Is a patient at the [place] [facility]. Allergies to lisinopril and penicillin. Has no other medical complaints. No other modifying factors or associated signs and symptoms. PFSH Past Medical History Hx Anticoagulant Therapy: Yes (asa) Arthritis: Yes Blood Disorders: No Heart Rhythm Problems: Yes (ARRYTHMIAS) Cancer: No Cardiovascular Problems: Yes (AAA REPAIR WITH STENT, SOB, CHF) High Cholesterol: Yes Chest Pain: No Congestive Heart Failure: Yes Diabetes: No Diminished Hearing: No Endocrine: No Genitourinary: No Hepatitis: No Hiatal Hernia: No Hypertension: Yes Immune Disorder: No Musculoskeletal: Yes (Degenerative disk disease, ATHRITIS, OSTEOPOROSIS) Neurologic: No Psychiatric: No Reproductive: No Respiratory: Yes (ASTHMA, COPD) Immunizations Current: Yes Thyroid Disease: No Past Surgical History Abdominal Surgery: Yes (AAA stented) AICD: Yes (ICD BIOTRONIC) Body Medical Devices: TRIPLE A REPAIR WITH STENT Cardiac Surgery: Yes (defib placement) Coronary Stent: Yes Ear Surgery: No Endocrine Surgery: No Eye Surgery: No Genitourinary Surgery: No Gynecologic Surgery: No Joint Replacement: No Oral Surgery: No Pacemaker: No Thoracic Surgery: No Other Surgery: Yes (CYST REMOVED FROM SCALP) Social History Alcohol Use: No Tobacco Use: No (Quit 09/05/13) Substance Use: No Allergies-Medications (Allergen,Severity, Reaction): Coded Allergies: penicillin G (Unverified Allergy, Severe, PASS OUT, 06/26/17) lisinopril (Unverified Allergy, Intermediate, Cough, 06/26/17) Reported Meds & Prescriptions Reported Meds & Active Scripts Active Medrol Dosepak (Methylprednisolone) 4 Mg Dspk 4 Mg PO DIRECTED Per Pharmacist direction Robaxin (Methocarbamol) 500 Mg Tab 500 Mg PO QID PRN Percocet (Oxycodone-Acetaminophen) 5-325 mg Tab 1 Tab PO Q4H PRN 7 Days Reported Azithromycin 250 Mg Tab 250 Mg PO DIRECTED Take 2 tabs (500 mg) on day 1 then 1 tab daily x 4 days. Aldactone (Spironolactone) 25 Mg Tab 25 Mg PO DAILY Losartan (Losartan Potassium) 50 Mg Tab 50 Mg PO HS Lasix (Furosemide) 20 Mg Tab 20 Mg PO DAILY Carvedilol 3.125 Mg Tab 3.125 Mg PO BID Aspirin DR (Aspirin) 81 Mg Tabdr 81 Mg PO DAILY Review of Systems Except as stated in HPI: all other systems reviewed are Neg Physical Exam Narrative GENERAL: Well-nourished, well-developed elderly, male patient, in no acute distress; afebrile, nontoxic-appearing SKIN: Warm and dry. HEAD: Atraumatic. Normocephalic. EYES: Pupils equal and round. No scleral icterus. No injection or drainage. ENT: Mucosa pink and moist. Airway patent. NECK: Trachea midline. CARDIOVASCULAR: Regular rate. RESPIRATORY: No accessory muscle use. GASTROINTESTINAL: Rounded. MUSCULOSKELETAL: Bilateral lower extremities supple and non-tense with 2+ pedal pulses and sensory intact; with full range of motion and 5/5 strength. 2 + DTRs bilaterally. Active dorsiflexion and extension of bilateral feet. Ambulatory in room with guarded gait. Sitting up in bed at 90. No obvious deformities. No clubbing. No cyanosis. No edema. BACK: No midline point tenderness on palpation of the lumbar spine. Tenderness on palpation of right lumbar iliosacral area. No obvious deformities. NEUROLOGICAL: Awake and alert. Oriented 3. No obvious cranial nerve deficits. Motor grossly within normal limits. Normal speech. Moves all extremities. 5/5 strength to all extremities. Sensory intact. PSYCHIATRIC: Appropriate mood and affect; insight and judgment normal. Data Data Last Documented VS Vital Signs Date Time Temp Pulse Resp B/P (MAP) Pulse Ox O2 Delivery O2 Flow Rate FiO2 06/26/17 10:25 98.7 77 18 138/89 (105) 98 Room Air Orders Orders Methocarbamol (Robaxin) (06/26/17 11:30) Ed Discharge Order (06/26/17 11:28) [facility] Medical Decision Making Medical Screen Exam Complete: Yes Emergency Medical Condition: Yes Medical Record Reviewed: Yes Differential Diagnosis Acute exacerbation of chronic low back pain, low back pain with right-sided sciatica, muscle spasm Narrative Course 71-year-old male physical exam and history of present illness consistent with low back pain with right-sided sciatica. Patient has history of chronic low back pain and sciatica. No new or recent injury. Patient is afebrile and nontoxic-appearing. Denies fever, vomiting. Denies encopresis, incontinence, saddle anesthesias. Denies IV drug use or cancer. Patient is ambulatory in the room with a guarded gait to the right lower extremity. Patient took oxycodone prior to arrival. Robaxin administered in the ER. Deltasone and Robaxin prescribed for home. Patient has prescription for oxycodone at home. Instructed patient to follow up with primary care provider. Patient verbalizes understanding and agreement with treatment plan. Patient is medically cleared and stable for discharge. Discussed reasons to return to the emergency department. Patient agrees with treatment plan. The patients vital signs are stable and the patient is stable for outpatient follow-up and treatment. Patient discharged home, stable and in no acute distress. Diagnosis Primary Impression: Low back pain with right-sided sciatica Qualified Codes: M54.41 - Lumbago with sciatica, right side Referrals: Orthopedist Primary Care Physician Patient Instructions: General Instructions, Sciatica (ED) Additional Instructions: Tylenol or ibuprofen as directed and as needed for pain Robaxin as prescribed and as needed for muscle spasms Heating pad and/or ice to affected area to reduce pain Avoid aggravating activities; increase activity as tolerated Walker, cane for support Follow-up with primary care provider Return to emergency department immediately with worsening of symptoms Med/Other Pt SpecificInfo: Prescription(s) given Scripts Methylprednisolone Dosepak (Medrol Dosepak) 4 Mg Dspk 4 MG PO DIRECTED, #1 DSPK 0 Refills Per Pharmacist direction Prov: Macy Peterson 06/26/17 Methocarbamol (Robaxin) 500 Mg Tab 500 MG PO QID Y for MUSCLE SPASM, #30 TAB 0 Refills Prov: Macy Peterson 06/26/17 Disposition: 01 DISCHARGE HOME Condition: Stable Macy Peterson Jun 26, 2017 11:26
[2017-06-26] MEDS ORDERED: METHOCARBAMOL 500 MG TAB PO ONE (11:30)
== END 2017-06-26 11:43 | disposition home or self-care (01) ==
LOC: NEPK 10:23
DX: M54.41 Lumbago with sciatica, right side (principal); I11.0 Hypertensive heart disease with heart failure; I50.9 Heart failure, unspecified; M81.0 Age-related osteoporosis without current pathological fracture; M19.90 Unspecified osteoarthritis, unspecified site; E78.00 Pure hypercholesterolemia, unspecified; J44.9 Chronic obstructive pulmonary disease, unspecified; Z79.82 Long term (current) use of aspirin; Z79.899 Other long term (current) drug therapy
CPT/HCPCS: 99284